=== PATIENT | female | born 1990 | race American Indian/Alaskan Native ===

== ENCOUNTER 2017-09-02 11:20 | Emergency (ER) | payer SELFPAY ==
[2017-09-02 11:39] VITALS: BP 109/66
[2017-09-02 12:07] LABS: Basophils % (Auto) 0.6 % (0.0-1.8); Eosinophils % (Auto) 1.5 % (0.0-4.3); Hematocrit 37.6 % (30.3-42.9); Hemoglobin 12.5 gm/dl (10.1-14.3); Mean Corpuscular HGB Conc 33 % (30-34); Mean Corpuscular Hemoglobin 31 pg (28-32); Mean Corpuscular Volume 92 fl (79-97); Platelet Count 255 K/mm3 (140-440); Red Blood Count 4.07 M/mm3 (3.65-5.03); Red Cell Distribution Width 13.8 % (13.2-15.2); White Blood Count 5.9 K/mm3 (4.5-11.0)
[2017-09-02 12:30] LABS: Mucus,Urine 3+ /HPF
[2017-09-02 12:48] LABS: Bacteria,Urine 2+ /HPF (Negative); Bilirubin,Urine NEG (Negative); Blood,Urine NEG (Negative); Ketones,Urine TR mg/dL (Negative); Leukocyte Esterase,Urine NEG (Negative); Nitrite,Urine NEG (Negative)
== END 2017-09-02 15:19 | disposition left against medical advice (07) ==
LOC: ED 11:20
DX: Z53.21 Procedure and treatment not carried out due to patient leaving prior to being seen by health care provider (principal)
CPT/HCPCS: 36415; 81001; 84702; 85025; 86850; 86900; 86901

== ENCOUNTER 2018-03-04 12:35 | Outpatient (CLI) | payer OTHER | END 2018-03-04 12:36 | disposition home or self-care (01) | LOC: VAS 12:35 | PROVIDERS: ATTEND Registered Nurse | DX: M79.604 Pain in right leg (principal); M79.89 Other specified soft tissue disorders; M25.561 Pain in right knee ==

== ENCOUNTER 2018-03-23 11:50 | Outpatient (CLI) | payer OTHER ==
[2018-03-23 12:11] VITALS: BP 100/65
[2018-03-23] MEDS ORDERED: LACTATED RINGERS 500 ML IV ONE (12:44)
== END 2018-03-23 13:20 | disposition home or self-care (01) ==
LOC: TRG 11:50
PROVIDERS: ATTEND Obstetrics & Gynecology Gynecology
DX: O47.03 False labor before 37 completed weeks of gestation, third trimester (principal); Z87.891 Personal history of nicotine dependence; Z3A.36 36 weeks gestation of pregnancy
CPT/HCPCS: 59025

== ENCOUNTER 2019-09-25 14:15 | Emergency (ER) | payer OTHER ==
[2019-09-25 14:23] VITALS: BP 121/73
--- NOTE | 2019-09-25 14:31 | Event Note ---
ED Screening Note ED Screening Note: dental abscess present to the left lower jaw urinary frequency and dysuria for 4-5 days no PCP no fever no vomiting no diarrhea PMHx none no allergies to meds LNMP: 09/14/2019 This initial assessment/diagnostic orders/clinical plan/treatment(s) is/are subject to change based on patients health status, clinical progression and re- assessment by fellow clinical providers in the ED. Further treatment and workup at subsequent clinical providers discretion. Patient/guardian urged not to elope from the ED as their condition may be serious if not clinically assessed and managed. Initial orders include: ua, urine preg
[2019-09-25 15:29] LABS: Bilirubin,Urine NEG (Negative); Blood,Urine NEG (Negative); Color,Urine Yellow (Yellow); Mucus,Urine FEW /HPF; Protein,Urine <15 mg/dL mg/dL (Negative); Urobilinogen,Urine < 2.0 mg/dL (<2.0)
[2019-09-25 15:32] LABS: HCG Qualitative,Urine Negative (Negative)
--- NOTE | 2019-09-25 16:23 | Emergency Department Report ---
ED General Adult HPI - General Chief complaint: Dental/Oral Stated complaint: SWOLLEN INFECTED FACE/BLADDER PAIN Time Seen by Provider: 09/25/19 14:29 Source: patient Mode of arrival: Ambulatory Limitations: No Limitations - History of Present Illness Initial comments: pt is a 29 yo female who presents to the ED with with c/o dental abscess present to the left lower jaw for a few days. she states she cracked a tooth years ago. states she used a whitening kit and began experiencing symptoms a few days later. she has not seen a dentist in multiple years. she states she also has urinary frequency and dysuria for 4-5 days. she does not have a PCP. she denies any fever, vomiting, diarrhea, abd pain. PMHx none. no allergies to meds LNMP: 09/14/2019 Severity scale (0 -10): 9 - Related Data Home Medications Medication Instructions Recorded Confirmed Last Taken Ferrous Sulfate [Iron] 1 tab PO QDAY 03/23/18 04/17/18 03/21/18 23:00 Pnv No.95/Ferrous Fum/Folic AC 1 tab PO QDAY 03/23/18 04/17/18 03/22/18 23:00 [ Formula Tablet] Previous Rx's Medication Instructions Recorded Last Taken Type Ibuprofen [Motrin 600 MG tab] 600 mg PO Q8H PRN #30 tablet 04/19/18 Unknown Rx Multivitamin with Iron 1 each PO DAILY #30 tablet 04/19/18 Unknown Rx [Multivitamins with Iron] oxyCODONE /ACETAMINOPHEN [Percocet 1 tab PO Q6HR PRN #30 tablet 04/19/18 Unknown Rx 5/325] Clindamycin [Clindamycin CAP] 450 mg PO TID 7 Days #63 capsule 09/25/19 Unknown Rx Ibuprofen [Motrin 600 MG tab] 600 mg PO Q8H PRN #20 tablet 09/25/19 Unknown Rx Allergies Allergy/AdvReac Type Severity Reaction Status Date / Time No Known Allergies Allergy Verified 03/03/18 16:08 ED Review of Systems ROS: Stated complaint: SWOLLEN INFECTED FACE/BLADDER PAIN Other details as noted in HPI Comment: All other systems reviewed and negative ED Past Medical Hx - Past Medical History Hx Hypertension: No Hx Congestive Heart Failure: No Hx Diabetes: No Hx Deep Vein Thrombosis: No Hx Renal Disease: No Hx Sickle Cell Disease: No Hx Seizures: No Hx Asthma: No Hx COPD: No Hx HIV: No Additional medical history: , anemic, MRSA - Surgical History Additional Surgical History: - Social History Smoking Status: Never Smoker Substance Use Type: None - Medications Home Medications: Home Medications Medication Instructions Recorded Confirmed Last Taken Type Ferrous Sulfate [Iron] 1 tab PO QDAY 03/23/18 04/17/18 03/21/18 23:00 History Pnv No.95/Ferrous Fum/Folic AC 1 tab PO QDAY 03/23/18 04/17/18 03/22/18 23:00 History [ Formula Tablet] Ibuprofen [Motrin 600 MG tab] 600 mg PO Q8H PRN #30 tablet 04/19/18 Unknown Rx Multivitamin with Iron 1 each PO DAILY #30 tablet 04/19/18 Unknown Rx [Multivitamins with Iron] oxyCODONE /ACETAMINOPHEN [Percocet 1 tab PO Q6HR PRN #30 tablet 04/19/18 Unknown Rx 5/325] Clindamycin [Clindamycin CAP] 450 mg PO TID 7 Days #63 capsule 09/25/19 Unknown Rx Ibuprofen [Motrin 600 MG tab] 600 mg PO Q8H PRN #20 tablet 09/25/19 Unknown Rx ED Physical Exam - General Limitations: No Limitations General appearance: alert, in no apparent distress - Head Head exam: Present: atraumatic, normocephalic - Eye Eye exam: Present: normal appearance - ENT ENT exam: Present: normal orophraynx, mucous membranes moist, TM's normal bilaterally, normal external ear exam, other (multiple cracked teeth, several dental caries, several missing teeth, area of edema present to the right lower gum line where a cracked tooth is present, right sided lower facial swelling, uvula is midline, no uvular edema) - Respiratory Respiratory exam: Present: normal lung sounds bilaterally. Absent: respiratory distress, wheezes, rales, rhonchi, stridor, chest wall tenderness, accessory muscle use, decreased breath sounds, prolonged expiratory - Cardiovascular Cardiovascular Exam: Present: regular rate, normal rhythm, normal heart sounds. Absent: systolic murmur, diastolic murmur, rubs, gallop - GI/Abdominal GI/Abdominal exam: Present: soft, normal bowel sounds. Absent: distended, tenderness, guarding, rebound, rigid - Neurological Exam Neurological exam: Present: alert, oriented X3 - Psychiatric Psychiatric exam: Present: normal affect, normal mood - Skin Skin exam: Present: warm, dry, intact ED Course Vital Signs 09/25/19 09/25/19 14:20 14:34 Temperature 99 F 99 F Pulse Rate 94 H 94 H Respiratory 16 18 Rate Blood Pressure 121/73 Blood Pressure 121/73 [Right] O2 Sat by Pulse 100 100 Oximetry ED Medical Decision Making - Medical Decision Making pt is a 29 yo female who presents to the ED with with c/o dental abscess present to the left lower jaw for a few days. she states she cracked a tooth years ago. states she used a whitening kit and began experiencing symptoms a few days later. she has not seen a dentist in multiple years. she states she also has urinary frequency and dysuria for 4-5 days. she does not have a PCP. she denies any fever, vomiting, diarrhea, abd pain. PMHx none. no allergies to meds LNMP: 09/14/2019. on exam; multiple cracked teeth, several dental caries, several missing teeth, area of edema present to the right lower gum line where a cracked tooth is present, right sided lower facial swelling, uvula is midline, no uvular edema. Examination consistent with dental abscess and facial cellulitis. no abd tenderness to palpation, no rigidity, no rebound, no guarding, no clinical signs or symptoms of TOA or PID. UA without UTI. Urine preg is negative. will have pt follow up with health department or [facility] for further evaluation of frequency/dysuria. pt given prescription for clindamycin and ibuprofen for dental abscess. advised pt to please take medication as prescribed. please increase your water intake over the next several days. please follow up with a dentist in the next 2-3 days, it is very important you follow up with a dentist once you have taken antibiotics for a permanent solution. please follow up with the health department or [facility] for your urinary symptoms to have a full examination. return to the emergency room for any new or worsening symptoms. - Differential Diagnosis dental abscess, dental caries, sialoadenitits, UTI, STD, vaginitis Critical care attestation.: If time is entered above; I have spent that time in minutes in the direct care of this critically ill patient, excluding procedure time. ED Disposition Clinical Impression: Dental abscess, Cracked tooth, Facial cellulitis, Dysuria Disposition: - TO HOME OR SELFCARE Is pt being admited?: No Does the pt Need Aspirin: No Condition: Stable Instructions: Dental Abscess (ED), Dysuria (ED) Additional Instructions: please take medication as prescribed. please increase your water intake over the next several days. please follow up with a dentist in the next 2-3 days, it is very important you follow up with a dentist once you have taken antibiotics for a permanent solution. please follow up with the health department or [facility] for your urinary symptoms to have a full examination. return to the emergency room for any new or worsening symptoms. Prescriptions: Clindamycin [Clindamycin CAP] 450 mg PO TID 7 Days #63 capsule Ibuprofen [Motrin 600 MG tab] 600 mg PO Q8H PRN #20 tablet PRN Reason: Pain Referrals: [facility] [Outside] - 2-3 Days [facility] [Outside] - 2-3 Days [facility] [Provider Group] - 2-3 Days [facility] [Provider Group] - 2-3 Days [facility] [Provider Group] - 2-3 Days Time of Disposition: 16:21 Print Language: CITIZEN OF [place]
== END 2019-09-25 15:00 | disposition home or self-care (01) ==
LOC: ED 14:15
DX: R30.0 Dysuria (principal); L03.211 Cellulitis of face; K04.7 Periapical abscess without sinus; K03.81 Cracked tooth; Z86.2 Personal history of diseases of the blood and blood-forming organs and certain disorders involving the immune mechanism; Z79.899 Other long term (current) drug therapy
CPT/HCPCS: 81001; 81025

== ENCOUNTER 2020-01-11 20:57 | Emergency (ER) | payer OTHER ==
[2020-01-11 21:28] LABS: Basophils % (Auto) 0.3 % (0.0-1.8); Eosinophils # (Auto) 0.1 K/mm3 (0.0-0.4); Eosinophils % (Auto) 1.1 % (0.0-4.3); Hematocrit 32.7 % (30.3-42.9); Hemoglobin 10.6 gm/dl (10.1-14.3); Lymphocytes # (Auto) 1.4 K/mm3 (1.2-5.4); Lymphocytes % (Auto) 13.6 % (13.4-35.0); Mean Corpuscular HGB Conc 32 % (30-34); Mean Corpuscular Volume 87 fl (79-97); Monocytes # (Auto) 1.5 K/mm3 (0.0-0.8); Monocytes % (Auto) 14.9 % (0.0-7.3); Platelet Count 262 K/mm3 (140-440); Red Blood Count 3.77 M/mm3 (3.65-5.03); Red Cell Distribution Width 16.5 % (13.2-15.2)
--- NOTE | 2020-01-11 21:30 | Emergency Department Report ---
ED General Adult HPI - General Chief complaint: Abdominal Pain Stated complaint: FEVER,ABD PAIN Time Seen by Provider: 01/11/20 21:19 Source: patient Mode of arrival: Ambulatory Limitations: No Limitations - History of Present Illness Initial comments: Patient is a 29-year-old female presents emergency room with complaints of a fever that began 5 days ago. She has associated chills, lower abdominal pain, nausea, vomiting, urinary frequency, pressure with urination, she states she also has an occasional cough. She states that her temperature was 102. She states that she last had Tylenol at 2 PM today. She states that she had a normal bowel movement today. She denies any diarrhea, shortness of breath, chest pain. She does not report any vaginal discharge or irritation. She denies any past medical history allergies to medications. She states her last menstrual cycle was 12/27/2019. - Related Data Home Medications Medication Instructions Recorded Confirmed Last Taken Ferrous Sulfate [Iron] 1 tab PO QDAY 03/23/18 04/17/18 03/21/18 23:00 Pnv No.95/Ferrous Fum/Folic AC 1 tab PO QDAY 03/23/18 04/17/18 03/22/18 23:00 [ Formula Tablet] Previous Rx's Medication Instructions Recorded Last Taken Type Ibuprofen [Motrin 600 MG tab] 600 mg PO Q8H PRN #30 tablet 04/19/18 Unknown Rx Multivitamin with Iron 1 each PO DAILY #30 tablet 04/19/18 Unknown Rx [Multivitamins with Iron] oxyCODONE /ACETAMINOPHEN [Percocet 1 tab PO Q6HR PRN #30 tablet 04/19/18 Unknown Rx 5/325] Clindamycin [Clindamycin CAP] 450 mg PO TID 7 Days #63 capsule 09/25/19 Unknown Rx Ibuprofen [Motrin 600 MG tab] 600 mg PO Q8H PRN #20 tablet 09/25/19 Unknown Rx Ondansetron [Zofran Odt] 4 mg PO Q8HR PRN #12 tab.rapdis 01/11/20 Unknown Rx cephALEXin [Keflex] 500 mg PO BID 10 Days #20 cap 01/11/20 Unknown Rx Allergies Allergy/AdvReac Type Severity Reaction Status Date / Time No Known Allergies Allergy Verified 03/03/18 16:08 ED Review of Systems ROS: Stated complaint: FEVER,ABD PAIN Other details as noted in HPI Comment: All other systems reviewed and negative ED Past Medical Hx - Past Medical History Hx Hypertension: No Hx Congestive Heart Failure: No Hx Diabetes: No Hx Deep Vein Thrombosis: No Hx Renal Disease: No Hx Sickle Cell Disease: No Hx Seizures: No Hx Asthma: No Hx COPD: No Hx HIV: No Additional medical history: , anemic, MRSA - Surgical History Additional Surgical History: - Social History Smoking Status: Current Every Day Smoker Substance Use Type: None - Medications Home Medications: Home Medications Medication Instructions Recorded Confirmed Last Taken Type Ferrous Sulfate [Iron] 1 tab PO QDAY 03/23/18 04/17/18 03/21/18 23:00 History Pnv No.95/Ferrous Fum/Folic AC 1 tab PO QDAY 03/23/18 04/17/18 03/22/18 23:00 History [ Formula Tablet] Ibuprofen [Motrin 600 MG tab] 600 mg PO Q8H PRN #30 tablet 04/19/18 Unknown Rx Multivitamin with Iron 1 each PO DAILY #30 tablet 04/19/18 Unknown Rx [Multivitamins with Iron] oxyCODONE /ACETAMINOPHEN [Percocet 1 tab PO Q6HR PRN #30 tablet 04/19/18 Unknown Rx 5/325] Clindamycin [Clindamycin CAP] 450 mg PO TID 7 Days #63 capsule 09/25/19 Unknown Rx Ibuprofen [Motrin 600 MG tab] 600 mg PO Q8H PRN #20 tablet 09/25/19 Unknown Rx Ondansetron [Zofran Odt] 4 mg PO Q8HR PRN #12 tab.rapdis 01/11/20 Unknown Rx cephALEXin [Keflex] 500 mg PO BID 10 Days #20 cap 01/11/20 Unknown Rx ED Physical Exam - General Limitations: No Limitations General appearance: alert, in no apparent distress - Head Head exam: Present: atraumatic, normocephalic - Eye Eye exam: Present: normal appearance - ENT ENT exam: Present: mucous membranes moist - Respiratory Respiratory exam: Present: normal lung sounds bilaterally. Absent: respiratory distress, wheezes, rales, rhonchi, stridor, chest wall tenderness, accessory muscle use, decreased breath sounds, prolonged expiratory - Cardiovascular Cardiovascular Exam: Present: regular rate, normal rhythm, normal heart sounds. Absent: systolic murmur, diastolic murmur, rubs, gallop - GI/Abdominal GI/Abdominal exam: Present: soft, normal bowel sounds. Absent: distended, tenderness, guarding, rebound, rigid - Back Exam Back exam: Absent: CVA tenderness (R), CVA tenderness (L) - Neurological Exam Neurological exam: Present: alert, oriented X3 - Psychiatric Psychiatric exam: Present: normal affect, normal mood - Skin Skin exam: Present: warm, dry, intact ED Course Vital Signs 01/11/20 01/11/20 21:01 23:11 Temperature 98.3 F 98.5 F Pulse Rate 96 H 88 Respiratory 18 18 Rate Blood Pressure 114/66 Blood Pressure 110/60 [Left] O2 Sat by Pulse 98 100 Oximetry ED Medical Decision Making - Lab Data Result diagrams: 01/11/20 21:17 01/11/20 21:17 Lab Results 01/11/20 01/11/20 01/11/20 Range/Units 21:17 21:17 21:17 WBC 10.4 (4.5-11.0) K/mm3 RBC 3.77 (3.65-5.03) M/mm3 Hgb 10.6 (10.1-14.3) gm/dl Hct 32.7 (30.3-42.9) % MCV 87 (79-97) fl MCH 28 (28-32) pg MCHC 32 (30-34) % RDW 16.5 H (13.2-15.2) % Plt Count 262 (140-440) K/mm3 Lymph % (Auto) 13.6 (13.4-35.0) % [place] % (Auto) 14.9 H (0.0-7.3) % Eos % (Auto) 1.1 (0.0-4.3) % Baso % (Auto) 0.3 (0.0-1.8) % Lymph # 1.4 (1.2-5.4) K/mm3 [place] # 1.5 H (0.0-0.8) K/mm3 Eos # 0.1 (0.0-0.4) K/mm3 Baso # 0.0 (0.0-0.1) K/mm3 Seg Neutrophils % 70.1 H (40.0-70.0) % Seg Neutrophils # 7.3 (1.8-7.7) K/mm3 Sodium 135 L (137-145) mmol/L Potassium 4.8 (3.6-5.0) mmol/L Chloride 96.5 L (98-107) mmol/L Carbon Dioxide 28 (22-30) mmol/L Anion Gap 15 mmol/L BUN 12 (7-17) mg/dL Creatinine 0.9 (0.7-1.2) mg/dL Estimated GFR > 60 ml/min BUN/Creatinine Ratio 13 % Glucose 109 H (65-100) mg/dL Calcium 9.8 (8.4-10.2) mg/dL Total Bilirubin 0.20 (0.1-1.2) mg/dL AST 26 (5-40) units/L ALT 33 (7-56) units/L Alkaline Phosphatase 83 (35-129) units/L Total Protein 8.9 H (6.3-8.2) g/dL Albumin 4.3 (3.9-5) g/dL Albumin/Globulin Ratio 0.9 % Lipase 17 (13-60) units/L HCG, Qual (Negative) Urine Color (Yellow) Urine Turbidity (Clear) Urine pH (5.0-7.0) Ur Specific [place] (1.003-1.030) Urine Protein (Negative) mg/dL Urine Glucose (UA) (Negative) mg/dL Urine Ketones (Negative) mg/dL Urine Blood (Negative) Urine Nitrite (Negative) Urine Bilirubin (Negative) Urine Urobilinogen (<2.0) mg/dL Ur Leukocyte Esterase (Negative) Urine WBC (Auto) (0.0-6.0) /HPF Urine RBC (Auto) (0.0-6.0) /HPF U Epithel Cells (Auto) (0-13.0) /HPF Urine Bacteria (Auto) (Negative) /HPF Urine Mucus /HPF 01/11/20 01/11/20 Range/Units 21:17 21:43 WBC (4.5-11.0) K/mm3 RBC (3.65-5.03) M/mm3 Hgb (10.1-14.3) gm/dl Hct (30.3-42.9) % MCV (79-97) fl MCH (28-32) pg MCHC (30-34) % RDW (13.2-15.2) % Plt Count (140-440) K/mm3 Lymph % (Auto) (13.4-35.0) % [place] % (Auto) (0.0-7.3) % Eos % (Auto) (0.0-4.3) % Baso % (Auto) (0.0-1.8) % Lymph # (1.2-5.4) K/mm3 [place] # (0.0-0.8) K/mm3 Eos # (0.0-0.4) K/mm3 Baso # (0.0-0.1) K/mm3 Seg Neutrophils % (40.0-70.0) % Seg Neutrophils # (1.8-7.7) K/mm3 Sodium (137-145) mmol/L Potassium (3.6-5.0) mmol/L Chloride (98-107) mmol/L Carbon Dioxide (22-30) mmol/L Anion Gap mmol/L BUN (7-17) mg/dL Creatinine (0.7-1.2) mg/dL Estimated GFR ml/min BUN/Creatinine Ratio % Glucose (65-100) mg/dL Calcium (8.4-10.2) mg/dL Total Bilirubin (0.1-1.2) mg/dL AST (5-40) units/L ALT (7-56) units/L Alkaline Phosphatase (35-129) units/L Total Protein (6.3-8.2) g/dL Albumin (3.9-5) g/dL Albumin/Globulin Ratio % Lipase (13-60) units/L HCG, Qual Negative (Negative) Urine Color Yellow (Yellow) Urine Turbidity Cloudy (Clear) Urine pH 6.0 (5.0-7.0) Ur Specific [place] 1.014 (1.003-1.030) Urine Protein 30 mg/dl (Negative) mg/dL Urine Glucose (UA) Neg (Negative) mg/dL Urine Ketones Neg (Negative) mg/dL Urine Blood Neg (Negative) Urine Nitrite Neg (Negative) Urine Bilirubin Neg (Negative) Urine Urobilinogen < 2.0 (<2.0) mg/dL Ur Leukocyte Esterase Lg (Negative) Urine WBC (Auto) > 182.0 H (0.0-6.0) /HPF Urine RBC (Auto) 10.0 (0.0-6.0) /HPF U Epithel Cells (Auto) 5.0 (0-13.0) /HPF Urine Bacteria (Auto) 2+ (Negative) /HPF Urine Mucus Few /HPF - Radiology Data Radiology results: report reviewed CHEST 2 VIEWS 2224 INDICATION / CLINICAL INFORMATION: cough, fever COMPARISON: None available. FINDINGS: SUPPORT DEVICES: None. HEART / MEDIASTINUM: No significant abnormality. LUNGS / PLEURA: No significant pulmonary or pleural abnormality. No pneumothorax . ADDITIONAL FINDINGS: No significant additional findings. IMPRESSION: No significant acute abnormality Signer Name: Indio Forrest MD Signed: 01/11/2020 10:54 PM Workstation Name: [id number] Transcribed By: MICHEL Dictated By: Indio Forrest MD Electronically Authenticated By: Indio Forrest MD Signed Date/Time: 01/11/202253 DD/ 53 TD/TT: - Medical Decision Making Patient is a 29-year-old female presents emergency room with complaints of a fever that began 5 days ago. She has associated chills, lower abdominal pain, n ausea, vomiting, urinary frequency, pressure with urination, she states she also has an occasional cough. She states that her temperature was 102. She states that she last had Tylenol at 2 PM today. She states that she had a normal bowel movement today. She denies any diarrhea, shortness of breath, chest pain. She does not report any vaginal discharge or irritation. She denies any past medic al history allergies to medications. She states her last menstrual cycle was 12/27/2019. Vitals are normal. No abnormality on physical exam as documented in chart. Labs are stable. UA shows evidence of significant UTI with greater than 182 white blood cells and leukocyte esterase. CXR: No significant acute abnormality. Patient is tolerating p.o. intake. Patient given 1 g of ceftriaxone while in the ED. patient given prescription for Keflex and Zofran. Advised patient Please take medication as prescribed. Increase your water intake over the next several days. You may take an [id number] cough relief medication such as Mucinex or Robitussin. Follow-up with a primary care doctor. Please have your primary care doctor retest your urine for clearance of bacteria. Return to emergency room for any new or worsening symptoms. Critical care attestation.: If time is entered above; I have spent that time in minutes in the direct care of this critically ill patient, excluding procedure time. ED Disposition Clinical Impression: Cough UTI (urinary tract infection) Qualifiers: Urinary tract infection type: acute cystitis Hematuria presence: without hematuria Qualified Code(s): N30.00 - Acute cystitis without hematuria Disposition: TO HOME OR SELFCARE Is pt being admited?: No Does the pt Need Aspirin: No Condition: Stable Instructions: Abdominal Pain (ED) Additional Instructions: Please take medication as prescribed. Increase your water intake over the next several days. You may take an [id number]-[id number] cough relief medication such as Mucinex or Robitussin. Follow-up with a primary care doctor. Please have your primary care doctor retest your urine for clearance of bacteria. Return to emergency room for any new or worsening symptoms. Prescriptions: cephALEXin [Keflex] 500 mg PO BID 10 Days #20 cap Ondansetron [Zofran Odt] 4 mg PO Q8HR PRN #12 tab.rapdis PRN Reason: Nausea And Vomiting Referrals: CAT LONGORIA MD [Staff Physician] - 3-5 Days [facility] [Provider Group] - 3-5 Days [facility] [Outside] - 3-5 Days [facility] [Outside] - 3-5 Days Print Language: RUSSIAN
[2020-01-11 21:51] LABS: Alanine Aminotransferase 33 units/L (7-56); Albumin 4.3 g/dL (3.9-5); BUN/Creatinine Ratio 13; Blood Urea Nitrogen 12 mg/dL (7-17); Calcium 9.8 mg/dL (8.4-10.2); Hemolysis Index 5
[2020-01-11 21:59] LABS: Bacteria,Urine 2+ /HPF (Negative); Bilirubin,Urine NEG (Negative); Blood,Urine NEG (Negative); Color,Urine Yellow (Yellow); Mucus,Urine FEW /HPF; Urobilinogen,Urine < 2.0 mg/dL (<2.0); WBC,Urine > 182.0 /HPF (0.0-6.0)
[2020-01-11] MEDS ORDERED: LIDOCAINE-MPF (1%) 10 MG/1 ML VIAL 5 ML INFILTRATI ONE (22:02)
--- NOTE | 2020-01-11 22:59 | XRay Report ---
CHEST 2 VIEWS 2225 INDICATION / CLINICAL INFORMATION: cough, fever COMPARISON: None available. FINDINGS: SUPPORT DEVICES: None. HEART / MEDIASTINUM: No significant abnormality. LUNGS / PLEURA: No significant pulmonary or pleural abnormality. No pneumothorax. ADDITIONAL FINDINGS: No significant additional findings. IMPRESSION: No significant acute abnormality Signer Name: Indio Forrest MD Signed: 01/11/2020 10:54 PM Workstation Name: [id number]
[2020-01-11 23:45] VITALS: BP 110/60
== END 2020-01-11 23:14 | disposition home or self-care (01) ==
LOC: ED 20:57
DX: N39.0 Urinary tract infection, site not specified (principal); R05 Cough; F17.200 Nicotine dependence, unspecified, uncomplicated; Z98.890 Other specified postprocedural states; Z79.1 Long term (current) use of non-steroidal anti-inflammatories (NSAID); Z79.2 Long term (current) use of antibiotics; Z79.899 Other long term (current) drug therapy
CPT/HCPCS: 36415; 71046; 80053; 81001; 83690; 84703; 85025; 87076; 87086; 87186; 96372; 99283; J0696

== ENCOUNTER 2021-07-03 05:17 | Emergency (ER) | payer OTHER ==
[2021-07-03 05:46] VITALS: BP 109/55
--- NOTE | 2021-07-03 06:26 | XRay Report ---
LEFT FOOT 2 VIEW(S) INDICATION / CLINICAL INFORMATION: crush injury to L foot COMPARISON: None available. FINDINGS: BONES / JOINT(S): There is a transverse fracture through the distal phalanx of the third digit. No si gnificant arthritis. SOFT TISSUES: No significant abnormality. ADDITIONAL FINDINGS: None. Signer Name: Nba Ly DO Signed: 07/03/2021 6:21 AM Workstation Name: [id number]
[2021-07-03] MEDS ORDERED: IBUPROFEN 800 MG TAB PO ONE (07:04)
--- NOTE | 2021-07-03 07:07 | Emergency Department Report ---
HPI - General Chief Complaint: Extremity Injury, Lower Time Seen by Provider: 07/03/21 06:55 - HPI HPI: MSE 3 The patient is a 31-year-old female present with chief complaint of left middle toe pain. Patient works at [employer] states that 02: 15 this morning a box fell landing on her middle toe of the left foot. Patient complains of pain when she ambulates and gives it a score of 10/10. Patient denies any other injuries or loss of consciousness. ED Past Medical Hx - Past Medical History Additional medical history: , anemic, MRSA - Surgical History Additional Surgical History: C- section, - Family History Family history: no significant - Social History Smoking Status: Never Smoker Substance Use Type: Alcohol (Occasional), Marijuana - Medications Home Medications: Home Medications Medication Instructions Recorded Confirmed Last Taken Type Ferrous Sulfate [Iron] 1 tab PO QDAY 03/23/18 04/17/18 03/21/18 23:00 History Pnv No.95/Ferrous Fum/Folic AC 1 tab PO QDAY 03/23/18 04/17/18 03/22/18 23:00 History [ Formula Tablet] Ibuprofen [Motrin 600 MG tab] 600 mg PO Q8H PRN #30 tablet 04/19/18 Unknown Rx Multivitamin with Iron 1 each PO DAILY #30 tablet 04/19/18 Unknown Rx [Multivitamins with Iron] oxyCODONE /ACETAMINOPHEN [Percocet 1 tab PO Q6HR PRN #30 tablet 04/19/18 Unknown Rx 5/325] Clindamycin [Clindamycin CAP] 450 mg PO TID 7 Days #63 capsule 09/25/19 Unknown Rx Ibuprofen [Motrin 600 MG tab] 600 mg PO Q8H PRN #20 tablet 09/25/19 Unknown Rx Ondansetron [Zofran Odt] 4 mg PO Q8HR PRN #12 tab.rapdis 01/11/20 Unknown Rx cephALEXin [Keflex] 500 mg PO BID 10 Days #20 cap 01/11/20 Unknown Rx HYDROcodone/APAP 5-325 [[place] 1 - 2 each PO Q6HR PRN #20 tablet 07/03/21 Unknown Rx 5/325] Ibuprofen [Motrin 800 MG tab] 800 mg PO Q8HR PRN #20 tablet 07/03/21 Unknown Rx ED Review of Systems ROS: Stated complaint: TOE INJURY Other details as noted in HPI Constitutional: no symptoms reported Eyes: denies: eye pain ENT: denies: throat pain Respiratory: no symptoms reported Cardiovascular: denies: chest pain Endocrine: no symptoms reported Gastrointestinal: denies: abdominal pain Genitourinary: denies: dysuria Musculoskeletal: arthralgia, myalgia Neurological: denies: headache Physical Exam - Physical Exam Vital Signs: Vital Signs 07/03/21 05:41 Temperature 97.9 F Pulse Rate 76 Respiratory 16 Rate Blood Pressure 109/55 O2 Sat by Pulse 99 Oximetry Physical Exam: GENERAL: The patient is well-developed well-nourished female sitting on stretcher not appearing to be in acute distress. [] HEENT: Normocephalic. Atraumatic. Extraocular motions are intact. Patient has moist mucous membranes. NECK: Supple. Trachea midline CHEST/LUNGS: There is no respiratory distress noted. HEART/CARDIOVASCULAR: Normal perfusion digits of left foot SKIN: There is ecchymosis to the dorsum of the mid third phalanx of the left foot. Toenails are painted. No laceration seen NEURO: The patient is awake, alert, and oriented. The patient is cooperative. The patient has no focal neurologic deficits. The patient has normal speech. GCS 15 MUSCULOSKELETAL: There is tenderness to palpation of the third digit of left foot ED Course Vital Signs 07/03/21 05:41 Temperature 97.9 F Pulse Rate 76 Respiratory 16 Rate Blood Pressure 109/55 O2 Sat by Pulse 99 Oximetry ED Medical Decision Making - Radiology Data Radiology results: report reviewed (Left foot x-ray), image reviewed (Left foot x-ray) interpreted by me: Left foot [id number] through the distal phalanx third digit [facility] [address] [place] [address] XRay Report Signed Patient: JASON BURNS MR#: [id number] : 1990 Acct:[id number] Age/Sex: 31 / F ADM Date: 07/03/21 Loc: ED Attending Dr: Ordering Physician: ED MD CARLA Date of Service: 07/03/21 Procedure(s): XR foot 2V LT Accession Number(s): [id number] cc: ED MD CARLA Fluoro Time In Minutes: LEFT FOOT 2 VIEW(S) INDICATION / CLINICAL INFORMATION: crush injury to L foot COMPARISON: None available. FINDINGS: BONES / JOINT(S): There is a transverse fracture through the distal phalanx of the third digit. No significant arthriti s. SOFT TISSUES: No significant abnormality. ADDITIONAL FINDINGS: None. Signer Name: Nba Fontaine DO Signed: 07/03/2021 6:21 AM Workstation Name: [id number] Transcribed By: FREDIS Dictated By: NBA FONTAINE DO Electronically Authenticated By: NBA FONTAINE DO Signed Date/Time: 07/03/21620 DD/ 9 TD/TT: Print Cancel - Differential Diagnosis Foot fracture, foot contusion Critical care attestation.: If time is entered above; I have spent that time in minutes in the direct care of this critically ill patient, excluding procedure time. ED Disposition Clinical Impression: Fracture of toe of left foot Disposition: HOME / SELF CARE / HOMELESS Is pt being admited?: No Does the pt Need Aspirin: No Condition: Stable Instructions: Toe Fracture, [id number] Additional Instructions: Return to the emergency department should you develop worsening symptoms, inability to tolerate food or liquids, high fever or any other concerns Prescriptions: Ibuprofen [Motrin 800 MG tab] 800 mg PO Q8HR PRN #20 tablet PRN Reason: Pain, Moderate (4-6) HYDROcodone/APAP 5-325 [[place] 5/325] 1 - 2 each PO Q6HR PRN #20 tablet PRN Reason: Pain Referrals: JULITA FLETCHER MD [Staff Physician] - 3-5 Days (Dr. Fletcher is an orthopedic surgeon. Please follow-up with him for further evaluation) Time of Disposition: 07:10
== END 2021-07-03 07:40 | disposition home or self-care (01) ==
LOC: ED 05:17
DX: S92.532A Displaced fracture of distal phalanx of left lesser toe(s), initial encounter for closed fracture (principal); D64.9 Anemia, unspecified; Z98.890 Other specified postprocedural states; W20.8XXA Other cause of strike by thrown, projected or falling object, initial encounter; Y93.89 Activity, other specified; Y92.89 Other specified places as the place of occurrence of the external cause; Y99.8 Other external cause status
CPT/HCPCS: 99283

== ENCOUNTER 2021-07-23 10:24 | Outpatient (CLI) | payer OTHER ==
--- NOTE | 2021-07-23 11:16 | XRay Report ---
LEFT FOOT HISTORY: Pain, box landed on third toe. COMPARISON: 07/03/2021. TECHNIQUE: 3 views of the left foot were obtained. FINDINGS: Bones: No significant change in transverse minimally displaced fracture through the left third distal phalanx. No significant interval callus formation is identified. Joint spaces: Maintained. Soft tissues: No significant abnormality. Additional findings: None. IMPRESSION: No significant change in known transverse minimally displaced fracture through the left third distal phalanx. No significant interval callus formation is identified. Signer Name: Rafa Hood MD Signed: 07/23/2021 11:12 AM Workstation Name: [id number]
== END 2021-07-23 10:25 | disposition home or self-care (01) ==
LOC: XRAY 10:24
PROVIDERS: ATTEND Nurse Practitioner Family
DX: S92.909A Unspecified fracture of unspecified foot, initial encounter for closed fracture (principal); X58.XXXA Exposure to other specified factors, initial encounter; Y93.89 Activity, other specified; Y92.89 Other specified places as the place of occurrence of the external cause; Y99.8 Other external cause status